=== PATIENT | male | born 1960 | race African-American/Black ===

== ENCOUNTER 2022-12-02 16:53 | Inpatient (IN) | payer OTHER ==
[2022-12-02 17:46] VITALS: BMI 19.1
[2022-12-02] MEDS ORDERED: MELATONIN 5 MG TABLETS PO PRN (20:33)
[2022-12-02] MEDS ORDERED: NICOTINE POLACRILEX 2 MG GUM BUC PRN (20:33)
[2022-12-02] MEDS ORDERED: BISMUTH SUBSALICYLATE 524 MG/30 ML PO PRN (20:33)
[2022-12-02] MEDS ORDERED: ONDANSETRON *ODT* 4 MG TABLET SL PRN (20:33)
[2022-12-02] MEDS ORDERED: DICYCLOMINE HCL 10 MG CAPSULE PO PRN (20:33)
[2022-12-02] MEDS ORDERED: NICOTINE 10 MG CARTRIDGE (INHALER) IH PRN (20:33)
[2022-12-02] MEDS ORDERED: hydrOXYzine PAMOATE 25 MG CAPSULE (FP) PO PRN (20:33)
[2022-12-02] MEDS ORDERED: LOPERAMIDE HCL 2 MG CAPSULE PO PRN (20:33)
[2022-12-02] MEDS ORDERED: NALOXONE HCL 0.4 MG/ML VIAL IM PRN (20:33)
[2022-12-02] MEDS ORDERED: IBUPROFEN 600 MG TABLET (FP) PO PRN (20:33)
[2022-12-02] MEDS ORDERED: P-EPHED 60MG/TRIPROLIDI 2.5MG TABLET PO PRN (20:33)
[2022-12-02] MEDS ORDERED: MAGNESIUM HYDROX 2400MG/30ML ORAL SUSPENSION 30 ML CUP PO PRN (20:33)
[2022-12-02] MEDS ORDERED: BENZOCAINE/MENTHOL (CHLORASEPTIC ) LOZENGE MM PRN (20:33)
[2022-12-02] MEDS ORDERED: IBUPROFEN 400 MG TABLET (FP) PO PRN (20:33)
[2022-12-02] MEDS ORDERED: NALOXONE HCL (KLOXXADO) 8 MG SPRAY NS PRN (20:33)
[2022-12-02] MEDS ORDERED: METHOCARBAMOL 500 MG TABLET PO PRN (20:33)
[2022-12-02] MEDS ORDERED: guaiFENesin 200 MG/10 ML 10 ML UNIT-DOSE CUPS PO PRN (20:33)
[2022-12-02] MEDS ORDERED: POLYETHYLENE GLYCOL (HEALTHYLAX) 3350 17 GM PACKET PO PRN (20:33)
[2022-12-02] MEDS ORDERED: MAG HYDROX/AL HYDROX/SIMETH 30 ML UNIT-DOSE CUP PO PRN (20:33)
[2022-12-02] MEDS ORDERED: ACETAMINOPHEN 325 MG TABLET (FP) PO PRN ×2 (20:33)
[2022-12-02] MEDS ORDERED: AMMONIUM LACTATE 12% LOTION 225 GM BOTTLE TP PRN (20:41)
[2022-12-02] MEDS ORDERED: hydrALAZINE HCL 25 MG TABLET (FP) PO SCH (23:00)
[2022-12-02] MEDS: THIAMINE HCL 100 MG TABLET (FP) PO SCH (23:06)
[2022-12-02] MEDS: diazePAM 5 MG TABLET PO PRN (23:07)
[2022-12-02] MEDS ORDERED: CARVEDILOL 12.5 MG TABLET (FP) PO ONE (23:10)
[2022-12-03] MEDS: SODIUM BICARBONATE 650 MG TABLET PO SCH ×4 (01:05→22:21)
[2022-12-03] MEDS: diazePAM 5 MG TABLET PO PRN ×2 (05:50→10:34)
[2022-12-03] MEDS ORDERED: LORazepam 0.5 MG TABLET PO PRN (10:26)
[2022-12-03] MEDS: PRENATAL VITAMINS W/ FOLIC ACID TABLET (FP) PO SCH (10:34)
[2022-12-03] MEDS: CARVEDILOL 12.5 MG TABLET (FP) PO SCH ×2 (10:34→22:21)
[2022-12-03] MEDS ORDERED: methaDONE HCL 10 MG TABLET (FOR DETOX USE ONLY) PO ONE (11:28)
[2022-12-03] MEDS ORDERED: cloNIDine HCL 0.1 MG TABLET PO PRN (11:28)
[2022-12-03] MEDS ORDERED: LORazepam 2 MG TABLET PO SCH (17:00)
[2022-12-03] MEDS: LORazepam 1 MG TABLET PO SCH ×2 (17:37→22:22)
[2022-12-03] MEDS: THIAMINE HCL 100 MG TABLET (FP) PO SCH (22:21)
[2022-12-03] MEDS: ATORVASTATIN CA 20 MG TABLET (FP) PO SCH (22:21)
[2022-12-04] MEDS: LORazepam 0.5 MG TABLET PO SCH ×4 (05:48→22:27)
[2022-12-04] MEDS: SODIUM BICARBONATE 650 MG TABLET PO SCH ×3 (05:49→22:26)
[2022-12-04] MEDS: CARVEDILOL 12.5 MG TABLET (FP) PO SCH ×2 (10:32→22:26)
[2022-12-04] MEDS: PRENATAL VITAMINS W/ FOLIC ACID TABLET (FP) PO SCH (10:32)
[2022-12-04] MEDS: THIAMINE HCL 100 MG TABLET (FP) PO SCH (22:25)
[2022-12-04] MEDS: ATORVASTATIN CA 20 MG TABLET (FP) PO SCH (22:26)
[2022-12-05] MEDS: LORazepam 0.5 MG TABLET PO SCH ×2 (05:14→10:05)
[2022-12-05] MEDS: SODIUM BICARBONATE 650 MG TABLET PO SCH (07:59)
[2022-12-05 10:00] VITALS: BP 133/66; PULSE 72; RESP 20; TEMP 97.8
[2022-12-05] MEDS ORDERED: methaDONE HCL 10 MG TABLET (FOR DETOX USE ONLY) PO ONE (10:00)
[2022-12-05] MEDS: CARVEDILOL 12.5 MG TABLET (FP) PO SCH (10:03)
[2022-12-05] MEDS: PRENATAL VITAMINS W/ FOLIC ACID TABLET (FP) PO SCH (10:05)
[2022-12-05 12:31] LABS: HEMATOCRIT 31.3 % (35.4-49); HEMOGLOBIN 10.1 GM/dL (11.7-16.9); MCH 30.2 pg (25.7-33.7); MCHC 32.4 g/dl (32.0-35.9); MEAN CELL VOLUME 93.3 fl (80-96); MEAN PLT VOLUME 8.1 fl (7.5-11.1); PLATELET COUNT 225 10^3/uL (134-434); RBC 3.36 M/mm3 (4.00-5.60); RDW 16.9 % (11.9-15.9); WHITE BLOOD COUNT 4.5 K/mm3 (4.0-10.0)
[2022-12-05 13:03] LABS: ALBUMIN 3.3 g/dl (3.4-5.0); BLOOD UREA NITROGEN 62.9 mg/dL (7-18); CALCIUM 8.7 mg/dL (8.5-10.1)
[2022-12-05 13:05] LABS: CREATININE 3.4 mg/dL (0.55-1.3)
[2022-12-05 13:07] LABS: BILIRUBIN,TOTAL 0.3 mg/dL (0.2-1); TOT PROT 6.7 g/dl (6.4-8.2)
[2022-12-06] MEDS ORDERED: LORazepam 0.5 MG TABLET PO ONE (05:00)
[2022-12-07] MEDS ORDERED: methaDONE HCL 10 MG TABLET (FOR DETOX USE ONLY) PO ONE (10:00)
== END 2022-12-05 11:06 | disposition left against medical advice (07) | DRG 770 ==
LOC: YASAS 16:53 → Y3N 20:51
PROVIDERS: ADMIT Allergy & Immunology; ATTEND Surgery
PROC: HZ2ZZZZ Detoxification Services for Substance Abuse Treatment (ICD-10-PCS; principal; 2022-12-02)
DX: F11.23 Opioid dependence with withdrawal (principal); F10.230 Alcohol dependence with withdrawal, uncomplicated; F14.20 Cocaine dependence, uncomplicated; F17.210 Nicotine dependence, cigarettes, uncomplicated; E78.5 Hyperlipidemia, unspecified; I11.0 Hypertensive heart disease with heart failure; I50.9 Heart failure, unspecified; J44.9 Chronic obstructive pulmonary disease, unspecified; M25.561 Pain in right knee; Z28.310 Unvaccinated for COVID-19; Z28.9 Immunization not carried out for unspecified reason
CPT/HCPCS: 36415; 80053; 85027; 86780; C9803-CS; U0003; U0005

== ENCOUNTER 2023-05-05 11:54 | Inpatient (IN) | payer OTHER ==
[2023-05-05 12:35] VITALS: BMI 19.3
[2023-05-05] MEDS ORDERED: NALOXONE HCL 0.4 MG/ML VIAL IM PRN (13:35)
[2023-05-05] MEDS ORDERED: NALOXONE HCL (KLOXXADO) 8 MG SPRAY NS PRN (13:35)
[2023-05-05] MEDS ORDERED: hydrOXYzine PAMOATE 25 MG CAPSULE (FP) PO PRN (13:35)
[2023-05-05] MEDS ORDERED: LOPERAMIDE HCL 2 MG CAPSULE PO PRN (13:35)
[2023-05-05] MEDS ORDERED: BENZONATATE 200 MG CAPSULE PO PRN (13:35)
[2023-05-05] MEDS ORDERED: IBUPROFEN 400 MG TABLET (FP) PO PRN (13:35)
[2023-05-05] MEDS ORDERED: guaiFENesin 600 MG TABLET.ER (FP) PO PRN (13:35)
[2023-05-05] MEDS ORDERED: DICYCLOMINE HCL 10 MG CAPSULE PO PRN (13:35)
[2023-05-05] MEDS ORDERED: BENZOCAINE/MENTHOL (CHLORASEPTIC ) LOZENGE MM PRN (13:35)
[2023-05-05] MEDS ORDERED: ACETAMINOPHEN 325 MG TABLET (FP) PO PRN (13:35)
[2023-05-05] MEDS ORDERED: ONDANSETRON *ODT* 4 MG TABLET SL PRN (13:35)
[2023-05-05] MEDS ORDERED: IBUPROFEN 600 MG TABLET (FP) PO PRN (13:35)
[2023-05-05] MEDS ORDERED: BISMUTH SUBSALICYLATE 262 MG/15 ML BTL PO PRN (13:35)
[2023-05-05] MEDS ORDERED: POLYETHYLENE GLYCOL (HEALTHYLAX) 3350 17 GM PACKET PO PRN (13:35)
[2023-05-05] MEDS ORDERED: MAG HYDROX/AL HYDROX/SIMETH 30 ML UNIT-DOSE CUP PO PRN (13:35)
[2023-05-05] MEDS ORDERED: MAGNESIUM HYDROX 2400MG/30ML ORAL SUSPENSION 30 ML CUP PO PRN (13:35)
[2023-05-05] MEDS: PRENATAL VITAMINS W/ FOLIC ACID TABLET (FP) PO SCH (15:09)
[2023-05-05] MEDS ORDERED: hydrALAZINE HCL 50 MG TABLET (FP) PO ONE (17:33)
[2023-05-05] MEDS ORDERED: hydrALAZINE HCL 25 MG TABLET (FP) PO SCH (22:00)
[2023-05-05] MEDS: CARVEDILOL 6.25 MG TABLET (FP) PO SCH (22:30)
[2023-05-05] MEDS: ATORVASTATIN CA 20 MG TABLET (FP) PO SCH (22:30)
[2023-05-05] MEDS: MELATONIN 5 MG TABLETS PO SCH (22:30)
[2023-05-05] MEDS: THIAMINE HCL 100 MG TABLET (FP) PO SCH (22:30)
[2023-05-05] MEDS: SODIUM BICARBONATE 650 MG TABLET PO SCH (22:30)
[2023-05-06] MEDS: SODIUM BICARBONATE 650 MG TABLET PO SCH ×3 (05:24→22:19)
[2023-05-06] MEDS: hydrALAZINE HCL 25 MG TABLET (FP) PO SCH ×3 (05:24→22:20)
[2023-05-06] MEDS: CARVEDILOL 6.25 MG TABLET (FP) PO SCH ×2 (10:25→22:19)
[2023-05-06] MEDS: PRENATAL VITAMINS W/ FOLIC ACID TABLET (FP) PO SCH (10:25)
[2023-05-06] MEDS ORDERED: LORazepam 1 MG TABLET PO PRN (10:50)
[2023-05-06] MEDS ORDERED: methaDONE HCL 10 MG TABLET (FOR DETOX USE ONLY) PO ONE (10:53)
[2023-05-06] MEDS ORDERED: methaDONE 40 MG, methaDONE 10 MG PO SCH (11:15)
[2023-05-06] MEDS: LORazepam 2 MG TABLET PO SCH ×3 (11:31→22:20)
[2023-05-06] MEDS ORDERED: PNEUMOC 20-VAL CONJ-DIP CRM/PF 0.5 ML SYRINGE IM ONE (12:00)
[2023-05-06 14:01] LABS: HEMOGLOBIN 11.8 GM/dL (11.7-16.9); MCH 31.2 pg (25.7-33.7); MCHC 32.7 g/dl (32.0-35.9); MEAN CELL VOLUME 95.3 fl (80-96); MEAN PLT VOLUME 8.3 fl (7.5-11.1); PLATELET COUNT 202 10^3/uL (134-434); RBC 3.78 M/mm3 (4.00-5.60); RDW 17.3 % (11.9-15.9)
[2023-05-06 14:16] LABS: POTASSIUM 3.6 mmol/L (3.5-5.1)
[2023-05-06 14:24] LABS: CALCIUM 8.6 mg/dL (8.5-10.1)
[2023-05-06 14:25] LABS: ALBUMIN 2.9 g/dl (3.4-5.0); BLOOD UREA NITROGEN 45.7 mg/dL (7-18)
[2023-05-06 14:27] LABS: BILIRUBIN,TOTAL 0.4 mg/dL (0.2-1); TOT PROT 6.4 g/dl (6.4-8.2)
[2023-05-06 14:28] LABS: CREATININE 2.8 mg/dL (0.55-1.3)
[2023-05-06] MEDS: MELATONIN 5 MG TABLETS PO SCH (22:19)
[2023-05-06] MEDS: THIAMINE HCL 100 MG TABLET (FP) PO SCH (22:19)
[2023-05-06] MEDS: ATORVASTATIN CA 20 MG TABLET (FP) PO SCH (22:20)
[2023-05-07] MEDS: LORazepam 2 MG TABLET PO SCH ×4 (05:49→22:05)
[2023-05-07] MEDS: SODIUM BICARBONATE 650 MG TABLET PO SCH ×3 (05:51→22:04)
[2023-05-07] MEDS: hydrALAZINE HCL 25 MG TABLET (FP) PO SCH ×3 (05:52→22:03)
[2023-05-07] MEDS ORDERED: methaDONE 40 MG, methaDONE 20 MG PO SCH (06:00)
[2023-05-07] MEDS ORDERED: methaDONE HCL 10 MG TABLET PO ONE (06:00)
[2023-05-07] MEDS: PRENATAL VITAMINS W/ FOLIC ACID TABLET (FP) PO SCH (10:25)
[2023-05-07] MEDS: CARVEDILOL 6.25 MG TABLET (FP) PO SCH ×2 (10:25→22:04)
[2023-05-07] MEDS: ATORVASTATIN CA 20 MG TABLET (FP) PO SCH (22:04)
[2023-05-07] MEDS: MELATONIN 5 MG TABLETS PO SCH (22:04)
[2023-05-07] MEDS: THIAMINE HCL 100 MG TABLET (FP) PO SCH (22:04)
[2023-05-08] MEDS: LORazepam 1 MG TABLET PO SCH ×4 (05:48→22:02)
[2023-05-08] MEDS: SODIUM BICARBONATE 650 MG TABLET PO SCH ×3 (05:49→21:55)
[2023-05-08] MEDS: hydrALAZINE HCL 25 MG TABLET (FP) PO SCH ×3 (05:49→21:55)
[2023-05-08] MEDS: methaDONE 40 MG, methaDONE 30 MG PO SCH (05:52)
[2023-05-08] MEDS ORDERED: methaDONE HCL 10 MG TABLET PO SCH (06:00)
[2023-05-08] MEDS ORDERED: P-EPHED 60MG/TRIPROLIDI 2.5MG TABLET PO PRN (10:02)
[2023-05-08] MEDS: PRENATAL VITAMINS W/ FOLIC ACID TABLET (FP) PO SCH (10:35)
[2023-05-08] MEDS: CARVEDILOL 6.25 MG TABLET (FP) PO SCH ×2 (10:35→21:55)
[2023-05-08] MEDS: ATORVASTATIN CA 20 MG TABLET (FP) PO SCH (21:54)
[2023-05-08] MEDS: THIAMINE HCL 100 MG TABLET (FP) PO SCH (21:54)
[2023-05-08] MEDS: MELATONIN 5 MG TABLETS PO SCH (21:55)
[2023-05-09] MEDS ORDERED: LORazepam 0.5 MG TABLET PO PRN
[2023-05-09] MEDS: hydrALAZINE HCL 25 MG TABLET (FP) PO SCH ×3 (05:45→22:24)
[2023-05-09] MEDS: methaDONE 40 MG, methaDONE 30 MG PO SCH (05:45)
[2023-05-09] MEDS: SODIUM BICARBONATE 650 MG TABLET PO SCH ×3 (05:45→23:19)
[2023-05-09] MEDS: LORazepam 0.5 MG TABLET PO SCH ×4 (05:46→22:24)
[2023-05-09] MEDS: PRENATAL VITAMINS W/ FOLIC ACID TABLET (FP) PO SCH (10:28)
[2023-05-09] MEDS: METHOCARBAMOL 500 MG TABLET PO PRN ×2 (10:28→22:27)
[2023-05-09] MEDS: CARVEDILOL 6.25 MG TABLET (FP) PO SCH ×2 (10:28→22:24)
[2023-05-09] MEDS ORDERED: hydrALAZINE HCL 25 MG TABLET (FP) PO ONE (15:03)
[2023-05-09] MEDS ORDERED: cloNIDine HCL 0.1 MG TABLET PO ONE (19:30)
[2023-05-09] MEDS: ATORVASTATIN CA 20 MG TABLET (FP) PO SCH (22:24)
[2023-05-09] MEDS: MELATONIN 5 MG TABLETS PO SCH (22:24)
[2023-05-09] MEDS: THIAMINE HCL 100 MG TABLET (FP) PO SCH (22:25)
[2023-05-10] MEDS ORDERED: LORazepam 0.5 MG TABLET PO ONE (05:00)
[2023-05-10] MEDS: methaDONE 40 MG, methaDONE 30 MG PO SCH (05:45)
[2023-05-10] MEDS: hydrALAZINE HCL 25 MG TABLET (FP) PO SCH ×2 (06:31→13:05)
[2023-05-10] MEDS: SODIUM BICARBONATE 650 MG TABLET PO SCH ×2 (06:31→13:06)
[2023-05-10] MEDS ORDERED: CARVEDILOL 12.5 MG TABLET (FP) PO SCH (08:31)
[2023-05-10 08:49] VITALS: RESP 18
[2023-05-10] MEDS: PRENATAL VITAMINS W/ FOLIC ACID TABLET (FP) PO SCH (10:22)
[2023-05-10 12:50] VITALS: PULSE 70; TEMP 97.5
[2023-05-10 12:51] VITALS: BP 179/100
[2023-05-10] MEDS ORDERED: hydrALAZINE HCL 25 MG TABLET (FP) PO ONE (12:56)
== END 2023-05-10 13:10 | disposition home or self-care (01) | DRG 773 ==
LOC: YASAS 11:54 → Y3N 14:27
PROVIDERS: ADMIT Allergy & Immunology; ATTEND Allergy & Immunology
PROC: HZ2ZZZZ Detoxification Services for Substance Abuse Treatment (ICD-10-PCS; principal; 2023-05-05)
DX: F10.230 Alcohol dependence with withdrawal, uncomplicated (principal); F11.20 Opioid dependence, uncomplicated; F14.20 Cocaine dependence, uncomplicated; F17.210 Nicotine dependence, cigarettes, uncomplicated; I11.0 Hypertensive heart disease with heart failure; I50.9 Heart failure, unspecified; N18.9 Chronic kidney disease, unspecified; E78.5 Hyperlipidemia, unspecified; J44.9 Chronic obstructive pulmonary disease, unspecified; Z28.310 Unvaccinated for COVID-19
CPT/HCPCS: 36415; 80053; 85027; 86780; 87635